=== PATIENT | female | born 1985 | race American Indian/Alaskan Native ===

== ENCOUNTER 2017-10-05 16:11 | Emergency (ER) | payer OTHER ==
[2017-10-05 16:52] VITALS: BP 108/81
[2017-10-05] MEDS ORDERED: PROVENTIL IH ONE (17:11)
--- NOTE | 2017-10-05 17:25 | Emergency Department Report ---
HPI - General Chief Complaint: Allergic Reaction Time Seen by Provider: 10/05/17 17:10 - HPI HPI: At 1:30 PM, patient was eating them and pepper wings. Afterwards, she noticed that her mouth started itching and swelling. Her chest became a little headache. She took 50 mg of Benadryl and used her rescue inhaler. This helped a little bit. However, she started symptoms. EMS was called. She was starting to feel better prior to EMS giving her albuterol and Solu-Medrol. Patient past allergic reactions were only to penicillin which were mild. The patient has never eaten at this restaurant before. At time of presentation to the ER, patient feels back to her normal self. H/o asthma. ED Past Medical Hx - Past Medical History Previous Medical History?: No - Surgical History Past Surgical History?: Yes Additional Surgical History: hernia repair 2002 - Social History Smoking Status: Never Smoker Substance Use Type: None - Medications Home Medications: Home Medications Medication Instructions Recorded Confirmed Last Taken Type Acetaminophen/Codeine [Tylenol #3] 1 tab PO Q6H PRN #20 tab 10/09/15 Unknown Rx Cyclobenzaprine [Flexeril] 10 mg PO TID PRN #30 tablet 10/09/15 Unknown Rx Ibuprofen [Motrin] 600 mg PO Q8H PRN #50 tablet 10/09/15 Unknown Rx EPINEPHrine [Epipen] 0.3 mg IJ ONCE PRN #1 auto.injct 10/05/17 Unknown Rx ED Review of Systems ROS: Stated complaint: ALLERGIC REACTION Other details as noted in HPI Comment: All other systems reviewed and negative ENT: other (mouth/face itching/swelling) Respiratory: shortness of breath Physical Exam - Physical Exam Vital Signs: Vital Signs 10/05/17 16:46 Temperature 98 F Pulse Rate 98 H Respiratory 16 Rate Blood Pressure 108/81 O2 Sat by Pulse 96 Oximetry General: well appearing, no acute distress. Physical Exam: Alert and oriented 3, oropharynx unremarkable, no evidence of facial swelling/ skin rash, regular rate and rhythm, clear to auscultation bilaterally, abdomen is soft and nontender/nondistended. Skin is warm dry and intact, no evidence of edema. Normal mood. ED Course Vital Signs 10/05/17 16:46 Temperature 98 F Pulse Rate 98 H Respiratory 16 Rate Blood Pressure 108/81 O2 Sat by Pulse 96 Oximetry ED Medical Decision Making - Medical Decision Making 31-year-old female with history of asthma, allergy to penicillin presents to the ER with allergic reaction. Symptoms began 4 hours prior to arrival. On presentation, patient feels back to baseline. Vital signs are stable. Lungs clear to auscultation bilaterally. Do not think patient needs further medicines at this point in time. I offered the patient observation in the ER, but she felt comfortable going home. She will continue to take Zyrtec and Benadryl as needed if the symptoms return. The patient has albuterol at home as well. She has been given a prescription for EpiPen. Return precautions have been discussed. Clear for Discharge. - Differential Diagnosis anaphylaxis, allergic reaction, asthma exacerbation, anxiety Critical care attestation.: If time is entered above; I have spent that time in minutes in the direct care of this critically ill patient, excluding procedure time. ED Disposition Clinical Impression: Allergic reaction Disposition: DC-01 TO HOME OR SELFCARE Is pt being admited?: No Condition: Stable Instructions: Food Allergy (ED) Additional Instructions: Take a 10 mg zyrtec today. If symptoms return, continue to take the zyrtec, 50 mg benadryl every 6 hours, and your albuterol inhaler as needed to manage the symptoms. If anything concerns you, return to the ER for re-evaluation. Prescriptions: EPINEPHrine [Epipen] 0.3 mg IJ ONCE PRN #1 auto.injct PRN Reason: Anaphylaxis Referrals: PRIMARY CARE, [Primary Care Provider] - 3-5 Days
== END 2017-10-05 17:53 | disposition home or self-care (01) ==
LOC: ED 16:11
DX: T78.40XA Allergy, unspecified, initial encounter (principal); J45.909 Unspecified asthma, uncomplicated
CPT/HCPCS: 94640